=== PATIENT | female | born 2000 | race Caucasian/White ===

== ENCOUNTER 2024-01-27 13:34 | Emergency (ER) | payer BC ==
[~2024-01-27] VITALS: Ht 170.1 cm; Wt 99.8 kg
== END 2024-01-27 14:19 | disposition home or self-care (01) ==
LOC: ED 13:34
DX: S81.012A Laceration without foreign body, left knee, initial encounter (principal); Z88.0 Allergy status to penicillin; Z88.1 Allergy status to other antibiotic agents; W19.XXXA Unspecified fall, initial encounter; Y93.89 Activity, other specified; Y92.89 Other specified places as the place of occurrence of the external cause; Y99.8 Other external cause status